=== PATIENT | male | born 1995 | race Asian ===

== ENCOUNTER 2017-07-18 14:02 | Emergency (ER) | payer MEDICAID ==
[~2017-07-18] VITALS: Ht 170.2 cm; Wt 53.7 kg
[2017-07-18 16:29] VITALS: BP 132/89
== END 2017-07-18 16:29 | disposition home or self-care (01) ==
LOC: ED 14:02
DX: H57.8 Other specified disorders of eye and adnexa (principal); I10 Essential (primary) hypertension

== ENCOUNTER 2018-08-14 00:29 | Emergency (ER) | payer MEDICAID ==
[~2018-08-14] VITALS: Ht 152.4 cm; Wt 52.2 kg
[2018-08-14 00:34] VITALS: Ht 152.4 cm; Wt 52.2 kg
[2018-08-14 01:10] VITALS: BP 119/67
== END 2018-08-14 00:56 | disposition home or self-care (01) ==
LOC: ED 00:29
DX: L23.9 Allergic contact dermatitis, unspecified cause (principal); Z91.012 Allergy to eggs